=== PATIENT | male | born 1955 | race Caucasian/White ===

== ENCOUNTER 2018-12-03 07:49 | Inpatient (IN) | payer BC ==
[2018-12-03] MEDS ORDERED: CEPASTAT LOZENGE MT (12:00)
[2018-12-03] MEDS ORDERED: AL HYDROX/MG HYDROX/SIMETH 30 ML CUP PO (12:00)
[2018-12-03] MEDS ORDERED: NALOXONE (0.4 MG/ML) INJ IV (12:00)
[2018-12-03] MEDS ORDERED: HYDROmorphONE 0.5 MG/0.5 ML SYG IV (12:00)
[2018-12-03] MEDS ORDERED: DIPHENHYDRAMINE 50 MG INJ IV ×3 (12:00→20:00)
[2018-12-03] MEDS ORDERED: ACETAMINOPHEN 325 MG TAB PO (12:00)
[2018-12-03] MEDS ORDERED: BISACODYL 10 MG SUPP PR (12:00)
[2018-12-03] MEDS ORDERED: DIPHENHYDRAMINE 25 MG CAP PO (12:00)
[2018-12-03] MEDS ORDERED: SUCCINYLCHOLINE CHLORIDE 100 MG/5 ML SYG IV (12:07)
[2018-12-03] MEDS ORDERED: PROPOFOL 20 ML ×2 (12:07→12:22)
[2018-12-03] MEDS ORDERED: METOCLOPRAMIDE 10 MG INJ (12:08)
[2018-12-03] MEDS ORDERED: ONDANSETRON 4 MG INJ (12:08)
[2018-12-03] MEDS ORDERED: PHENYLephrine (100 MCG/ML) 10ML SYG (12:17)
[2018-12-03] MEDS ORDERED: CEFAZOLIN 1 GM INJ (12:21)
[2018-12-03] MEDS ORDERED: HYDROmorphONE 2 MG/ML SYG (12:21)
[2018-12-03] MEDS ORDERED: ROCURONIUM 50 MG INJ (12:29)
[2018-12-03] MEDS: POLYMYXIN/BACITRACIN 1L IRRIG (12:58)
[2018-12-03] MEDS: SURGIFOAM POWDER 1 GM KIT (12:59)
[2018-12-03] MEDS: BUPIVACAINE 0.5%/EPI (SDV) 30 ML INJ (12:59)
[2018-12-03] MEDS: THROMBIN 5000 UNIT VIAL (12:59)
[2018-12-03] MEDS ORDERED: HYDROmorphONE 1 MG/5 ML IV SYRINGE IV ×6 (13:00→20:00)
[2018-12-03] MEDS ORDERED: EPHEDrine 50 MG INJ (13:00)
[2018-12-03] MEDS ORDERED: ONDANSETRON 4 MG INJ IV ×2 (13:00→20:00)
[2018-12-03] MEDS ORDERED: MEPERIDINE 25 MG INJ IV ×2 (13:00→20:00)
[2018-12-03] MEDS ORDERED: hydrALAzine 20 MG INJ IV (13:00)
[2018-12-03] MEDS ORDERED: LABETALOL HCL 20MG INJ IV (13:00)
[2018-12-03] MEDS ORDERED: GLYCOPYRROLATE 0.4 MG INJ (14:42)
[2018-12-03] MEDS ORDERED: NEOSTIGMINE 3 MG/3 ML SYRINGE (14:42)
[2018-12-03] MEDS: CEFAZOLIN 1 GM/50 ML (PMX) 50 ML IVPB ×2 (15:27→20:28)
[2018-12-03] MEDS: D5W-0.45 NACL + KCL 20 MEQ 1,000 ML IV ×2 (16:00→21:35)
[2018-12-03] MEDS: HYDROCODONE/APAP (10/325) TAB PO ×2 (16:12→20:30)
[2018-12-03] MEDS: valACYclovir 500 MG TAB PO (19:35)
[2018-12-03] MEDS ORDERED: FENTAnyl 50 MCG/ML VIAL IV ×3 (20:00)
[2018-12-03] MEDS: FAMOTIDINE 20 MG INJ IV (20:27)
[2018-12-03] MEDS: PAROXETINE (CR) 12.5 MG TAB PO (20:28)
[2018-12-03] MEDS: DOCUSATE SODIUM 100 MG CAP PO (20:29)
[2018-12-04] MEDS: HYDROCODONE/APAP (10/325) TAB PO ×5 (00:36→12:59)
[2018-12-04] MEDS: D5W-0.45 NACL + KCL 20 MEQ 1,000 ML IV (04:15)
[2018-12-04] MEDS: CEFAZOLIN 1 GM/50 ML (PMX) 50 ML IVPB (04:16)
[2018-12-04] MEDS: CYCLOBENZAPRINE 10 MG TAB PO ×2 (04:22→09:25)
[2018-12-04 05:11] LABS: ADD MAN DIFF? NO
[2018-12-04 05:29] LABS: BASOPHILS % 0.4 % (0.0-2.0); EOSINOPHILS # 0.1 10^3/ul (0.0-0.5); EOSINOPHILS % 1.3 % (0.0-7.0); HEMATOCRIT 34.7 % (42.0-52.0); HEMOGLOBIN 11.7 g/dl (14.0-18.0); LYMPHOCYTES # 1.3 10^3/ul (0.8-2.9); LYMPHOCYTES % 18.2 % (15.0-51.0); MEAN CORPUSCULAR HEMOGLOBIN 32.8 pg (29.0-33.0); MEAN CORPUSCULAR HGB CONC 33.7 g/dl (32.0-37.0); MEAN CORPUSCULAR VOLUME 97.2 fl (82.0-101.0); MEAN PLATELET VOLUME 10.6 fl (7.4-10.4); MONOCYTE # 0.6 10^3/ul (0.3-0.9); MONOCYTES % 7.9 % (0.0-11.0); NEUTROPHIL # 5.1 10^3/ul (1.6-7.5); NEUTROPHILS % 71.9 % (39.0-77.0); PLATELET COUNT 201 10^3/UL (140-415); RED BLOOD COUNT 3.57 10^6/ul (4.70-6.10)
[2018-12-04 05:29] LABS: WHITE BLOOD COUNT 7.1 10^3/ul (4.8-10.8)
[2018-12-04] MEDS: PANTOPRAZOLE (EC) 40 MG TAB PO (05:43)
[2018-12-04 05:45] LABS: ANION GAP 8 (5-13); BLOOD UREA NITROGEN 10 mg/dl (7-20); CALCIUM 8.7 mg/dl (8.4-10.2); CARBON DIOXIDE 30 mmol/L (21-31); CHLORIDE 102 mmol/L (97-110); CREATININE 0.79 mg/dl (0.61-1.24); Estimated GFR > 60 mL/min (>60); GLUCOSE 99 mg/dl (70-220); MAGNESIUM 1.8 mg/dl (1.7-2.5); POTASSIUM 4.1 mmol/L (3.5-5.1); SODIUM 140 mmol/L (135-144)
[2018-12-04] MEDS ORDERED: PANTOPRAZOLE 40 MG INJ IV (06:00)
[2018-12-04] MEDS: valACYclovir 500 MG TAB PO (08:34)
[2018-12-04] MEDS: PAROXETINE (CR) 12.5 MG TAB PO (08:34)
[2018-12-04] MEDS: DOCUSATE SODIUM 100 MG CAP PO (08:35)
[2018-12-04] MEDS: ONDANSETRON 4 MG INJ IV (09:05)
[2018-12-04] MEDS: FAMOTIDINE 20 MG INJ IV (09:05)
[2018-12-05] MEDS ORDERED: INFLUENZA VIRUS VACCINE 0.5 ML (DISPENSING) IM* (10:00)
== END 2018-12-04 14:35 | disposition home or self-care (01) | DRG 520 ==
LOC: REC 07:49 → MS1 15:45
PROC: 0SB40ZZ Excision of Lumbosacral Disc, Open Approach (ICD-10-PCS; principal; 2018-12-03 11:00)
DX: M51.17 Intervertebral disc disorders with radiculopathy, lumbosacral region (principal); M48.07 Spinal stenosis, lumbosacral region
CPT/HCPCS: 72020; 80048; 83735; 85025; 86999; 88304; 97116; 97161; 97530